=== PATIENT | female | born 1965 | race Caucasian/White ===

== ENCOUNTER → 2017-01-15 | Outpatient (CLI) | payer MEDICARE, BC ==
[~2017-01-15] MED LIST: ALAVERT D-12 A1 EACH PO; ALPRAZOLAM0.5 MG PO; ASPIRIN325 MG PO; BUSPIRONE HCL15 MG PO; CLARITIN 10MG T10 MG PO; GLUCOPHAGE500 MG PO; IBUPROFEN800 MG PO; LIPITOR40 MG PO; LOSARTAN-HCTZ1 EAC1 PO; NEURONTIN 400400 MG PO; NORCO 10-325 T1 EACH PO; PERCOCET 5-3251 EACH PO; PHENERGAN 12.12.5 M1 PO; STOOL SOFTENER250 MG PO; ZOFRAN 4 MG TAB4 MG PO
[2017-01-15 10:34] LABS: BUN/CREATININE RATIO 17 (0-10)
== END ==
LOC: OPSV2 09:00
PROVIDERS: Orthopaedic Surgery
DX: Z01.810 Encounter for preprocedural cardiovascular examination (principal); Z01.812 Encounter for preprocedural laboratory examination; Z01.818 Encounter for other preprocedural examination; S83.512A Sprain of anterior cruciate ligament of left knee, initial encounter; S83.207A Unspecified tear of unspecified meniscus, current injury, left knee, initial encounter
CPT/HCPCS: 71020; 80048; 93005

== ENCOUNTER → 2017-01-16 | Day surgery (SDC) | payer MEDICARE, BC ==
[~2017-01-16] VITALS: Ht 160 cm; Wt 86.2 kg
== END | disposition home or self-care (01) ==
LOC: OR 07:30
PROVIDERS: Orthopaedic Surgery
PROC: 0MUP47Z Supplement Left Knee Bursa and Ligament with Autologous Tissue Substitute, Percutaneous Endoscopic Approach (ICD-10-PCS; principal; 2017-01-16 10:30)
DX: S83.512A Sprain of anterior cruciate ligament of left knee, initial encounter (principal); I10 Essential (primary) hypertension; E11.9 Type 2 diabetes mellitus without complications; M19.90 Unspecified osteoarthritis, unspecified site; E78.5 Hyperlipidemia, unspecified; J44.9 Chronic obstructive pulmonary disease, unspecified; M81.0 Age-related osteoporosis without current pathological fracture; F41.9 Anxiety disorder, unspecified; M79.7 Fibromyalgia; Z98.51 Tubal ligation status; Z79.891 Long term (current) use of opiate analgesic; Z79.899 Other long term (current) drug therapy; Z88.0 Allergy status to penicillin; Z82.5 Family history of asthma and other chronic lower respiratory diseases; Z82.49 Family history of ischemic heart disease and other diseases of the circulatory system; Z83.3 Family history of diabetes mellitus
CPT/HCPCS: 73560; 76000; 82962; C1713; J1100; J2250; J2274; J2405; J2710; J7120

== ENCOUNTER → 2020-12-06 | Outpatient (CLI) | payer MEDICARE, BC | LOC: EXRD 11-28 13:00 | DX: N13.5 Crossing vessel and stricture of ureter without hydronephrosis (principal); N26.1 Atrophy of kidney (terminal) | CPT/HCPCS: 76775 ==

== ENCOUNTER → 2021-01-22 | Outpatient (CLI) | payer MEDICARE, BC ==
[2021-01-22 15:34] LABS: HEMOGLOBIN 10.8 gm/dl (12.3-15.3); RED BLOOD COUNT 3.68 M/UL (4.00-5.10); WHITE BLOOD COUNT 8.1 K/UL (4.5-11.0)
[2021-01-23 08:15] LABS: VITAMIN D, 25-HYDROXY 43.9 ng/mL (30.0-100.0)
[2021-01-23 12:10] LABS: RHEUMATOID ARTHRITIS FACTOR <10.0 IU/mL (0.0-13.9)
== END ==
LOC: LAB 13:31
PROVIDERS: Nurse Practitioner
DX: E55.9 Vitamin D deficiency, unspecified (principal); E53.8 Deficiency of other specified B group vitamins; E08.42 Diabetes mellitus due to underlying condition with diabetic polyneuropathy
CPT/HCPCS: 36415; 80053; 80061; 82607; 82746; 83036; 84439; 84443; 85025; 85652; 86431

== ENCOUNTER → 2021-02-22 | Outpatient (CLI) | payer MEDICARE, BC | LOC: KOH-I 08:00 → CT 09:00 | DX: N39.0 Urinary tract infection, site not specified (principal); R10.9 Unspecified abdominal pain; N28.89 Other specified disorders of kidney and ureter | CPT/HCPCS: 74176 ==

== ENCOUNTER → 2021-03-09 | Outpatient (CLI) | payer MEDICARE, BC | LOC: CT 12:17 | DX: N20.0 Calculus of kidney (principal); R93.41 Abnormal radiologic findings on diagnostic imaging of renal pelvis, ureter, or bladder | CPT/HCPCS: 36415; 82565; Q9967 ==

== ENCOUNTER → 2022-01-29 | Outpatient (CLI) | payer MEDICARE, BC | LOC: EXRD 01-28 14:00 | DX: N13.30 Unspecified hydronephrosis (principal) | CPT/HCPCS: 76775 ==

== ENCOUNTER → 2022-03-18 | Outpatient (CLI) | payer MEDICARE, BC | LOC: EMI 16:20 | DX: M54.50 Low back pain, unspecified (principal); M47.816 Spondylosis without myelopathy or radiculopathy, lumbar region | CPT/HCPCS: 72148 ==

== ENCOUNTER → 2022-06-12 | Outpatient (CLI) | payer MEDICARE, BC, OTHER | LOC: KOH-I 11:22 | DX: M54.2 Cervicalgia (principal); R59.0 Localized enlarged lymph nodes | CPT/HCPCS: 76536 ==